=== PATIENT | male | born 1960 | race Caucasian/White ===

== ENCOUNTER 2016-11-22 17:22 | Emergency (ER) | payer SELFPAY ==
[~2016-11-22] VITALS: Ht 180.3 cm; Wt 74.4 kg
[2016-11-22 17:49] VITALS: BP 149/84
== END 2016-11-22 17:52 | disposition left against medical advice (07) ==
LOC: ER 17:28
DX: R94.31 Abnormal electrocardiogram [ECG] [EKG] (principal); R79.9 Abnormal finding of blood chemistry, unspecified; Z53.21 Procedure and treatment not carried out due to patient leaving prior to being seen by health care provider
CPT/HCPCS: 93005